=== PATIENT | male | born 1990 | race African-American/Black ===

== ENCOUNTER 2022-12-04 20:05 | Observation (INO) | payer OTHER ==
[2022-12-04] MEDS ORDERED: Ondansetron PF 4 MG/2 ML Vial IVP PRN (20:42)
[2022-12-04] MEDS ORDERED: Acetaminophen 325 MG TAB PO PRN (20:42)
[2022-12-04] MEDS ORDERED: HYDROcodone/Acetaminophen 5/325 mg Tablet PO PRN (20:42)
[2022-12-04] MEDS ORDERED: Zolpidem Tartrate 5 MG TAB PO PRN (20:42)
[2022-12-04] MEDS ORDERED: Senokot S 8.6-50 MG TAB PO PRN (20:42)
[2022-12-04] MEDS ORDERED: Guaifenesin DM 100-10/5 ML UDCUP PO PRN (20:42)
[2022-12-04] MEDS ORDERED: Calcium Carbonate 500 MG ChewTAB PO PRN (20:42)
[2022-12-04] MEDS ORDERED: Nicotine 14 MG PATCH TD SCH (21:00)
[2022-12-04] MEDS ORDERED: Lactated Ringer's 1,000 ML IV SCH (21:00)
[2022-12-04 22:08] VITALS: BMI 20.9
[2022-12-04] MEDS: Ibuprofen 200 MG TAB PO SCH (22:23)
[2022-12-04] MEDS: Ampicillin/Sulbactam 3 GM in Sodium Chloride 0.9% 100 ML IVPB SCH (23:11)
[2022-12-05] MEDS: Ampicillin/Sulbactam 3 GM in Sodium Chloride 0.9% 100 ML IVPB SCH (03:25)
[2022-12-05] MEDS: Ibuprofen 200 MG TAB PO SCH (03:26)
[2022-12-05 05:47] LABS: #Monocytes 1.3 10x3/uL (0.0-1.1); #Neutrophils 12.5 10x3/uL (1.5-8.4); %Basophils 0.1 % (0.0-2.0); %Lymphocytes 12.3 % (18.0-47.0); %Monocytes 8.3 % (0.0-10.0); %Neutrophils 78.9 % (40.0-75.0); Hematocrit 39.3 % (38.8-50.0); Hemoglobin 13.7 g/dL (13.5-17.5); Mean Corpuscular HGB CONC 34.9 g/dL (32.0-36.0); Mean Corpuscular Hemoglobin 32.3 pg (27.0-33.0); Mean Corpuscular Volume 92.7 fl (81.2-95.1); Mean Platelet Volume 11.1 fl (7.4-10.4); Platelet Count 189 10x3/uL (150-450); RBC Distribution Width 13.7 % (11.5-14.5); Red Blood Cell (RBC) Count 4.24 10x6/uL (4.32-5.72); White Blood Cell (WBC) Count 15.8 10x3/uL (3.5-10.5)
[2022-12-05 05:59] LABS: Anion Gap 13 mmol/L (10-20); BUN (Urea Nitrogen) 10 mg/dL (8.9-20.6); Calc. Creatinine Clearance 133 mL/min (70-130); Calcium 8.6 mg/dL (7.8-10.44); Carbon Dioxide 25 mmol/L (22-29); Chloride 108 mmol/L (98-107); Estimated GFR 120; Glucose 136 mg/dL (70-105); Potassium 3.9 mmol/L (3.5-5.1); Sodium 142 mmol/L (136-145)
[2022-12-05 09:19] VITALS: BP 137/81; TEMP 97.6
== END 2022-12-05 09:15 | disposition home or self-care (01) ==
LOC: CSHTELE 20:05 → INTOOBSV 20:05
PROVIDERS: ADMIT Family Medicine; ATTEND Family Medicine
DX: K04.7 Periapical abscess without sinus (principal); L03.211 Cellulitis of face; F17.210 Nicotine dependence, cigarettes, uncomplicated
CPT/HCPCS: 36415; 80048; 85025; 96374; 96376; G0378; J0295; J3490; J7120